=== PATIENT | male | born 1955 | race Caucasian/White ===

== ENCOUNTER 2018-09-21 06:31 | Day surgery (SDC) | payer OTHER ==
[~2018-09-21 06:31] MED LIST: Buffered Lidocaine 0.9% SYRIN* 5 ML/SYR SYRINGE INTRADERM ONE; Sodium Citrate/Citric Acid* 15 ML UDC ONE; Sodium Citrate/Citric Acid* 15 ML UDC PO ONE
[2018-09-21] MEDS ORDERED: ceFAZolin 2 GM PREMIX in ORs 2 GM/50 ML BAG IVPB ONE (06:40)
[2018-09-21] MEDS ORDERED: ROPIVACAINE 5 MG/ML 30 ML BTL (0.5%) ONE (07:19)
[2018-09-21] MEDS ORDERED: fentaNYL* 50 MCG/ML 2 ML VIAL (100 MCG VIAL) ONE (07:28)
[2018-09-21] MEDS ORDERED: Propofol* 10 MG/ML 20 ML BTL IV PUSH ONE (07:29)
[2018-09-21] MEDS ORDERED: Ketorolac INJ* 30 MG/ML 1 ML VIAL IV PRN (07:46)
[2018-09-21] MEDS ORDERED: Ondansetron INJ* 2 MG/ML VIAL IV PRN (07:46)
[2018-09-21] MEDS ORDERED: Naloxone* 0.4 MG/ML 1 ML VIAL IV PRN (07:46)
[2018-09-21] MEDS ORDERED: fentaNYL* 50 MCG/ML 2 ML VIAL (100 MCG VIAL) IV PRN (07:46)
[2018-09-21] MEDS ORDERED: Lidocaine 2% PF * 5 ML VIAL ONE (08:51)
[2018-09-21] MEDS ORDERED: Ketorolac INJ* 30 MG/ML 1 ML VIAL ONE (09:08)
[2018-09-21] MEDS ORDERED: HYDROcodone/ACETAMIN 5-325 MG* 1 TAB ONE (09:19)
[2018-09-21 09:51] VITALS: BP 114/76
--- NOTE | 2018-09-21 10:19 | OP ---
OPERATIVE REPORT: DATE OF OPERATION: 09/21/18 DATE OF : 59 SURGEON: Kiran Britton MD COUGAR HUNTER: DEMARCUS Ledezma An orthodontic technician assistant was needed for the procedure to aid in positioning of the arm and retraction. ANESTHESIOLOGIST: Dr. Krishnamurthy. ANESTHESIA: General. PRE-OP DIAGNOSIS: Left wrist fourth dorsal compartment extensor tenosynovectomy with tendon degenera tion and partial rupture. POST-OP DIAGNOSIS: Left wrist fourth dorsal compartment extensor tenosynovectomy with tendon degener ation and partial rupture. OPERATIVE PROCEDURE: 1. Left wrist fourth dorsal compartment radical tenosynovectomy. 2. Debridement of left fourth dorsal compartment partial tendon rupture. INDICATIONS: Brandon is 62. He has developed over the last few months, extensive tenosynovitis confir med on MRI. He has not yet ruptured in the tendons clinically. We had talked about risks and benefit s. I told them we got to excise that tendon rupture and try to get a diagnosis. He understands and wants to proceed. ESTIMATED BLOOD LOSS: 2 mL. COMPLICATIONS: None. FINDINGS: See above and below. DESCRIPTION OF PROCEDURE: Brandon was seen in the preoperative holding area. The correct site, side, and procedure were identified. We came back to the operating room. The arm was prepped and draped i n the usual fashion. A time-out was performed. The arm was exsanguinated with the Esmarch and the tourniquet inflated to 250 mmHg. I made a longitud inal incision over the dorsum of the left hand in line with the fourth dorsal compartment. Dissectio n was carried down. Full thickness flaps were raised off the fascia overlying the tendons on the evin aaron hand and off the extensor retinaculum. The third and fourth dorsal compartments were opened up. The EPL tendon was transposed. There was extensive tenosynovitis all around the tendons. This took quite some time but I was able to excise it all. It was sent for both permanent pathology as well as aerobic, anaerobic, fungal and mycobacterial cultures. I also sent a crystal analysis. It took quite some time but once we had the tendons completely cleaned, I went ahead and examined the partial tendon ruptures. The tendons were very frayed. I went ahead and debrided back all of the f raying until I had nice smooth edges on all my tendons and all the degenerative portions had been exc ised. There were not any fully ruptured tendons. Some of them though were more than 50% ruptured. Once I debrided all the tendons and everything was looking completely cleaned, I went ahead and irrig ated out the wound extensively. The extensor retinaculum was closed with 4-0 nylon suture. Some Mar aaron was placed into the wound but not into the subcutaneous tissue. It was just splashed into the wound. The skin was closed with 4-0 Monocryl suture and Steri-Strips. The wound was dressed and a c ock-up wrist splint was applied. Tourniquet was deflated. He was taken to the recovery room in stab le condition. [id number] #: [id number]
== END 2018-09-21 09:49 | disposition home or self-care (01) ==
LOC: OREAST 06:31
PROVIDERS: ATTEND Orthopaedic Surgery Hand Surgery
DX: M65.842 Other synovitis and tenosynovitis, left hand (principal); M66.832 Spontaneous rupture of other tendons, left forearm; E78.5 Hyperlipidemia, unspecified; I10 Essential (primary) hypertension
CPT/HCPCS: 87070; 87073; 87102; 87116; 87205; 87206; 88304; A9270-GY; J0690; J1885; J2704; J2795; J3010